=== PATIENT | male | born 1955 ===

== ENCOUNTER 2022-03-25 18:27 | Outpatient (REF) | payer MEDICARE, SELFPAY ==
[2022-03-27 11:58] LABS: COVID-19 RT-PCR UVMMC Result Negative (Negative)
== END 2022-03-25 18:28 | disposition home or self-care (01) ==
LOC: LBN 18:27
PROVIDERS: Visit Provider Physician Assistant Medical
DX: Z20.822 Contact with and (suspected) exposure to COVID-19 (principal)
CPT/HCPCS: U0003